=== PATIENT | male | born 1955 | race Caucasian/White ===

== ENCOUNTER 2019-05-16 03:22 | Inpatient (IN) | payer MEDICARE, OTHER ==
[2019-05-16] MEDS ORDERED: NORepinephrine 8MG/250 ML (PMX 250 ML (03:30)
[2019-05-16] MEDS ORDERED: LEVALBUTEROL (NEB) 0.63 MG/3 ML AMP HHN ×2 (04:00→08:00)
[2019-05-16] MEDS: NORepinephrine 8MG/250 ML (PMX 250 ML IV ×2 (04:17→12:09)
[2019-05-16] MEDS: SOD CHLORIDE 0.9% 1,000 ML IV ×3 (04:18→17:45)
[2019-05-16 04:27] LABS: ADD MAN DIFF? NO
[2019-05-16 04:29] LABS: ABNORMAL IP MESSAGE 1; BASOPHIL # 0.1 10^3/ul (0.0-0.1); BASOPHILS % 0.3 % (0.0-2.0); EOSINOPHILS # 0.8 10^3/ul (0.0-0.5); EOSINOPHILS % 2.4 % (0.0-7.0); HEMATOCRIT 25.1 % (42.0-52.0); HEMOGLOBIN 7.8 g/dl (14.0-18.0); LYMPHOCYTES % 6.2 % (15.0-51.0); MEAN CORPUSCULAR HEMOGLOBIN 28.8 pg (29.0-33.0); MEAN CORPUSCULAR HGB CONC 31.1 g/dl (32.0-37.0); MEAN CORPUSCULAR VOLUME 92.6 fl (82.0-101.0); MEAN PLATELET VOLUME 10.5 fl (7.4-10.4); MONOCYTE # 1.1 10^3/ul (0.3-0.9); MONOCYTES % 3.4 % (0.0-11.0); NEUTROPHIL # 26.9 10^3/ul (1.6-7.5); NEUTROPHILS % 84.3 % (39.0-77.0); NUCLEATED RED BLOOD CELLS # 0.1 10^3/ul (0.0-0.0); NUCLEATED RED BLOOD CELLS% 0.2 /100WBC (0.0-0.0); PLATELET COUNT 413 10^3/UL (140-415); POSITIVE DIFF @See below; RED BLOOD COUNT 2.71 10^6/ul (4.70-6.10)
[2019-05-16 04:48] LABS: ALANINE AMINOTRANSFERASE 197 IU/L (13-69); ALBUMIN 2.4 g/dl (3.3-4.9); ALBUMIN/GLOBULIN RATIO 0.51; ALKALINE PHOSPHATASE 216 IU/L (42-121); ANION GAP 10 (5-13); ASPARTATE AMINO TRANSFERASE 258 IU/L (15-46); BILIRUBIN,INDIRECT 1.1 mg/dl (0-1.1); BILIRUBIN,TOTAL 6.3 mg/dl (0.2-1.3); BLOOD UREA NITROGEN 108 mg/dl (7-20); CALCIUM 10.6 mg/dl (8.4-10.2); CARBON DIOXIDE 14 mmol/L (21-31); CHLORIDE 120 mmol/L (97-110); CREATININE 3.68 mg/dl (0.61-1.24); Estimated GFR 17 mL/min (>60); GLUCOSE 116 mg/dl (70-220); MAGNESIUM 1.6 mg/dl (1.7-2.5); PHOSPHORUS 5.5 mg/dl (2.5-4.9); POTASSIUM 4.3 mmol/L (3.5-5.1); SODIUM 144 mmol/L (135-144); TOTAL PROTEIN 7.1 g/dl (6.1-8.1); TRIGLYCERIDES 275 mg/dl (0-149)
[2019-05-16 04:51] LABS: PARTIAL THROMBOPLASTIN TIME 45.3 Sec (23.0-35.0)
[2019-05-16 05:20] LABS: PREALBUMIN 13.7 mg/dl (17.6-36.0)
[2019-05-16] MEDS: INSULIN ASPART [NOVOLOG] 3 ML PEN SC ×3 (05:54→18:00)
[2019-05-16] MEDS: HEPARIN 5,000 UNIT/1 ML VIAL SC ×3 (05:59→20:19)
[2019-05-16 06:26] LABS: AADO2 Arterial 60.9 mmHg (7.0-24.0); Allen Test ACCEPTAB; Arterial Base Excess -12.1 mmol/L (-3.0-3); Arterial COHb 0.3 % (0.0-3.0); Arterial Fraction of Oxyhgb 97.3 % (93.0-99.0); Arterial HCO3 13.7 mmol/L (22.0-26.0); Arterial MetHb 0.4 % (0.0-1.5); Arterial pCO2 30.7 mmhg (35-45); MODE VENT - AC; Site Left Radial
[2019-05-16 08:03] LABS: LACTIC ACID 1.5 mmol/L (0.5-2.0)
[2019-05-16] MEDS ORDERED: FAMOTIDINE 20 MG INJ IV (09:00)
[2019-05-16] MEDS ORDERED: VANCOMYCIN IV PER PHARMACY XX (09:00)
[2019-05-16] MEDS: LEVALBUTEROL (HFA) 15 GM INHALER INH ×3 (09:00→19:38)
[2019-05-16 09:02] LABS: ALANINE AMINOTRANSFERASE 247 IU/L (13-69); ALBUMIN 2.3 g/dl (3.3-4.9); ALBUMIN/GLOBULIN RATIO 0.48; ALKALINE PHOSPHATASE 245 IU/L (42-121); ANION GAP 12 (5-13); ASPARTATE AMINO TRANSFERASE 329 IU/L (15-46); BILIRUBIN,INDIRECT 1.2 mg/dl (0-1.1); BILIRUBIN,TOTAL 6.8 mg/dl (0.2-1.3); BLOOD UREA NITROGEN 109 mg/dl (7-20); CALCIUM 10.8 mg/dl (8.4-10.2); CARBON DIOXIDE 11 mmol/L (21-31); CHLORIDE 120 mmol/L (97-110); CREATININE 3.85 mg/dl (0.61-1.24); Estimated GFR 16 mL/min (>60); GLUCOSE 143 mg/dl (70-220); MAGNESIUM 1.6 mg/dl (1.7-2.5); PHOSPHORUS 5.1 mg/dl (2.5-4.9); SODIUM 143 mmol/L (135-144); TRIGLYCERIDES 300 mg/dl (0-149)
[2019-05-16 09:09] LABS: PREALBUMIN 14.6 mg/dl (17.6-36.0)
[2019-05-16] MEDS: NA BICARBONATE 8.4% 50 ML SYG IV ×3 (09:23→20:08)
[2019-05-16] MEDS: CEFEPIME 1GM/50 ML (PMX) 50 ML IVPB (09:23)
[2019-05-16] MEDS: BALSAM PERU/CASTOR OIL 60 GM TUBE TOP ×2 (09:24→20:09)
[2019-05-16] MEDS: MICONAZOLE 2% 30 GM CR TOP ×2 (09:24→20:09)
[2019-05-16] MEDS ORDERED: GLUCAGON 1 MG INJ IM (09:30)
[2019-05-16] MEDS ORDERED: GLUCOSE GEL 15 GRAM TUBE BUCCAL (09:30)
[2019-05-16] MEDS ORDERED: DEXTROSE 50% 50 ML SYRINGE IV ×2 (09:30)
[2019-05-16] MEDS ORDERED: GLUCOSE GEL 15 GRAM TUBE PO ×2 (09:30)
[2019-05-16 09:48] LABS: CREATINE KINASE 36 IU/L (23-200)
[2019-05-16 09:58] LABS: TROPONIN-I < 0.012 ng/ml (0.000-0.120)
[2019-05-16] MEDS: FAMOTIDINE 20 MG INJ IV ×2 (10:00→20:13)
[2019-05-16 10:03] LABS: CK-MB 3.96 ng/ml (0.0-2.4)
[2019-05-16] MEDS: TPN 1,000 ML IV ×2 (11:31→20:18)
[2019-05-16] MEDS: VANCOMYCIN HCL 1.25 GM in SOD CHLORIDE 0.9% 250 ML IVPB (11:32)
[2019-05-16] MEDS: CASPOFUNGIN 70 MG in NS 250 ML IVPB (12:09)
[2019-05-16] MEDS: DIPHENHYDRAMINE 50 MG INJ IV (16:30)
[2019-05-16] MEDS: PHENYLephrine 40 MG in DEXTROSE 5% 246 ML IV ×2 (16:56→20:57)
[2019-05-16 19:29] LABS: AADO2 Arterial 131.3 mmHg (7.0-24.0); Allen Test ACCEPTAB; Arterial Base Excess -13.5 mmol/L (-3.0-3); Arterial Blood Gas Oxygen Sat 78.5 mmHG (95.0-98.0); Arterial COHb 0.3 % (0.0-3.0); Arterial HCO3 12.5 mmol/L (22.0-26.0); Arterial MetHb 0.3 % (0.0-1.5); Arterial pCO2 29.3 mmhg (35-45); MODE VENT - AC; Site Right Radial
[2019-05-16] MEDS: MAGNESIUM SULFATE 2 GM/50 ML 50 ML IVPB (20:08)
[2019-05-16] MEDS: VASOPRESSIN 60 UNIT in DEXTROSE 5% 57 ML IV (20:15)
[2019-05-16] MEDS: SODIUM BICARBONATE (IV ADD) 150 MEQ in DEXTROSE 5% 850 ML IV (20:57)
[2019-05-17] MEDS: PHENYLephrine 40 MG in DEXTROSE 5% 246 ML IV ×4 (00:03→14:54)
[2019-05-17] MEDS: FUROSEMIDE 40 MG INJ IV (01:07)
[2019-05-17] MEDS: LEVALBUTEROL (HFA) 15 GM INHALER INH ×3 (01:15→13:20)
[2019-05-17] MEDS: TPN 1,000 ML IV (01:18)
[2019-05-17] MEDS: INSULIN ASPART [NOVOLOG] 3 ML PEN SC ×3 (01:24→12:00)
[2019-05-17 05:10] LABS: CREATINE KINASE 29 IU/L (23-200)
[2019-05-17 05:14] LABS: ANION GAP 15 (5-13); BLOOD UREA NITROGEN 111 mg/dl (7-20); CALCIUM 9.5 mg/dl (8.4-10.2); CARBON DIOXIDE 13 mmol/L (21-31); CHLORIDE 114 mmol/L (97-110); CREATININE 4.62 mg/dl (0.61-1.24); Estimated GFR 13 mL/min (>60); GLUCOSE 168 mg/dl (70-220); MAGNESIUM 2.3 mg/dl (1.7-2.5); PHOSPHORUS 5.7 mg/dl (2.5-4.9); POTASSIUM 4.2 mmol/L (3.5-5.1); SODIUM 142 mmol/L (135-144)
[2019-05-17 05:19] LABS: ALANINE AMINOTRANSFERASE 212 IU/L (13-69); ALBUMIN 1.9 g/dl (3.3-4.9); ALKALINE PHOSPHATASE 241 IU/L (42-121); ASPARTATE AMINO TRANSFERASE 185 IU/L (15-46); BILIRUBIN,INDIRECT 1.1 mg/dl (0-1.1); BILIRUBIN,TOTAL 5.8 mg/dl (0.2-1.3); CK INDEX 11.2
[2019-05-17 05:23] LABS: TROPONIN-I 0.097 ng/ml (0.000-0.120)
[2019-05-17] MEDS: HEPARIN 5,000 UNIT/1 ML VIAL SC ×2 (05:41→14:34)
[2019-05-17 05:46] LABS: CK-MB 3.24 ng/ml (0.0-2.4)
[2019-05-17] MEDS: CEFEPIME 1GM/50 ML (PMX) 50 ML IVPB (10:15)
[2019-05-17] MEDS: MICONAZOLE 2% 30 GM CR TOP (10:16)
[2019-05-17] MEDS: BALSAM PERU/CASTOR OIL 60 GM TUBE TOP (10:17)
[2019-05-17] MEDS: CASPOFUNGIN 35 MG in SOD CHLORIDE 0.9% 250 ML IVPB (10:18)
[2019-05-17] MEDS: FAMOTIDINE 20 MG INJ IV (10:36)
[2019-05-17] MEDS: MEROPENEM 500MG/50 ML (PMX) 50 ML IVPB (14:43)
[2019-05-17] MEDS: SODIUM BICARBONATE IN D5W 1,000 ML IV (14:43)
[2019-05-17] MEDS: morphine 2 MG INJ IV (17:24)
[2019-05-17] MEDS ORDERED: SCOPOLAMINE 1.5 MG PATCH TRANSDERM (19:30)
[2019-05-17] MEDS ORDERED: LORAZEPAM 2 MG INJ IV (19:30)
[2019-05-17] MEDS: morphine (DRIP) 100 MG/100 ML 100 ML IV (20:23)
[2019-05-17] MEDS: ATROPINE 1% 5 ML OPH SL (20:26)
== END 2019-05-17 23:25 | disposition expired | DRG 871 ==
LOC: ICU 03:22
PROVIDERS: Internal Medicine
PROC: 5A1945Z Respiratory Ventilation, 24-96 Consecutive Hours (ICD-10-PCS; principal; 2019-05-16)
DX: A41.9 Sepsis, unspecified organism (principal); R65.21 Severe sepsis with septic shock; G92 Toxic encephalopathy; K72.00 Acute and subacute hepatic failure without coma; K83.1 Obstruction of bile duct; J69.0 Pneumonitis due to inhalation of food and vomit; J96.20 Acute and chronic respiratory failure, unspecified whether with hypoxia or hypercapnia; N17.9 Acute kidney failure, unspecified; E87.2 Acidosis; G93.1 Anoxic brain damage, not elsewhere classified; E46 Unspecified protein-calorie malnutrition; Z68.1 Body mass index [BMI] 19.9 or less, adult; R17 Unspecified jaundice; K56.7 Ileus, unspecified; I46.9 Cardiac arrest, cause unspecified; F25.9 Schizoaffective disorder, unspecified; J44.9 Chronic obstructive pulmonary disease, unspecified; D64.9 Anemia, unspecified; I10 Essential (primary) hypertension; R13.10 Dysphagia, unspecified; Z93.0 Tracheostomy status; I12.9 Hypertensive chronic kidney disease with stage 1 through stage 4 chronic kidney disease, or unspecified chronic kidney disease; N18.9 Chronic kidney disease, unspecified
CPT/HCPCS: 36600; 71045; 80048; 80053; 80076; 82550; 82553; 82803; 82962; 83605; 83735; 84100; 84134; 84145; 84478; 84484; 85025; 85730; 87040-91; 87070; 87081; 89220; 93005; 93306; 94002; 94003; 94640